=== PATIENT | male | born 1965 | race Caucasian/White ===

== ENCOUNTER 2023-09-23 09:25 | Day surgery (SDC) | payer OTHER | END 2023-09-23 10:00 | disposition home or self-care (01) | LOC: MDS 09:25 → MMU 09:26 → MDS 10:00 | PROVIDERS: ATTEND Internal Medicine Gastroenterology | DX: Z12.11 Encounter for screening for malignant neoplasm of colon (principal); Z53.8 Procedure and treatment not carried out for other reasons ==